=== PATIENT | male | born 1995 | race Two or more races ===

== ENCOUNTER 2020-01-23 17:43 | Outpatient (REF) | payer BC, SELFPAY | END 2020-01-23 17:44 | disposition home or self-care (01) | LOC: HO.LAB 17:43 | PROVIDERS: Visit Provider Internal Medicine | DX: Z20.828 Contact with and (suspected) exposure to other viral communicable diseases (principal) | CPT/HCPCS: C9803; U0003 ==

== ENCOUNTER 2020-02-16 10:57 | Outpatient (REF) | payer BC, SELFPAY | END 2020-02-16 10:58 | disposition home or self-care (01) | LOC: HO.LAB 10:57 | PROVIDERS: Visit Provider Internal Medicine | DX: Z20.828 Contact with and (suspected) exposure to other viral communicable diseases (principal) | CPT/HCPCS: 36415; C9803; U0003 ==

== ENCOUNTER 2020-05-29 19:04 | Emergency (ER) | payer BC, SELFPAY ==
[2020-05-29 19:12] VITALS: BP 136/83; PULSE 90; RESP 18; TEMP 37.1; O2SAT 97; BMI 29.5
--- NOTE | 2020-05-29 19:51 | ED_ITS ---
HPI - Anxiety General Chief Complaint: Anxiety Stated Complaint: anxiety Source: patient Mode of arrival: ambulatory Limitations: no limitations History of Present Illness HPI narrative: 24-year-old male with no significant past medical history presents with approximately 1 month of anxiety. States that he feels overwhelmed by world events, he did break up his girlfriend about a month ago, has had trouble sleeping, trouble eating, and difficulty focusing on tasks. Does not describe any suicidal ideations or homicidal ideations. Denies utilizing drugs or alcohol for coping mechanisms. Is requesting to speak to somebody to help alleviate the stress that he is experiencing. At times he does feel like he has tremors and sweats because of the anxiety. He denies chest pain or pressure, palpitations, shortness of breath, shortness of breath on exertion, abdominal pain, abdominal distention, dysuria, hematuria, fevers, chills, and any other concerning symptoms. MD complaint: anxiety Onset (ago): month(s) (1) Symptoms: extremity numbness/tingling and sense of impending doom Severity: moderate Quality: intermittent Place: home, work, school and outdoors History of similar episodes: Yes (First presentation to the emergency department for anxiety) Provoking factors: emotional stress and work/job stress Relieving factors: nothing Exacerbating factors: thinking about event Associated symptoms: denies other symptoms Related Data Previous Rx's Medication Instructions Recorded hydroxyzine HCl 25 mg PO BID PRN #30 tab 05/29/20 Allergies Allergy/AdvReac Type Severity Reaction Status Date / Time No Known Allergies Allergy Verified 05/29/20 19:12 [No Known Allergies*] pollen Allergy Unknown Nasal Uncoded 05/29/20 19:12 congestion Review of Systems Review of Systems: Constitutional: No Fever, No Chills ENT/Mouth: No Ear Pain, No Nasal Congestion, No sore throat Eyes: No Eye Pain, No Swelling, No Redness Cardiovascular: No Chest Pain, No SOB Respiratory: No Cough, No Sputum, No Dyspnea Gastrointestinal: No Nausea, No Vomiting, No Diarrhea, No Hematochezia, No Melena Genitourinary: No Dysuria, No Urinary Frequency, No Hematuria Musculoskeletal: No Myalgias Skin: No Skin Lesions, No rash Neuro: No Weakness, No Numbness, No Paresthesias, No Dizziness, No Headache Psych: positive Anxiety, positive Depression, no SI/HI Heme/Lymph: No Lymphadenopathy Endocrine: No Polyuria, No Polydipsia Yes all other systems are reviewed and are negative [facility] Past Medical History Attestation statement: The following information was validated with the patient. Source: old records reviewed Medical History No known health problems Social History Social History Advance Directives: No Advance Directives Information Provided: No Physical Exam Vital Signs: Vital Signs: Last Vital Signs Temp 98.8 F 05/29/20 19:12 Pulse 90 05/29/20 19:12 Resp 18 05/29/20 19:12 BP 136/83 05/29/20 19:12 Pulse Ox 97 05/29/20 19:12 Body Mass Index 29.5 Appearance: Alert. Oriented X3. No acute distress. Eyes: Pupils equal, round and reactive to light. ENT: Pharynx normal. Neck: Normal inspection. Neck supple. CVS: Normal heart rate and rhythm. Pulses normal. Respiratory: No respiratory distress. Breath sounds normal. Abdomen: Soft and nontender. Skin: Skin warm and dry. Normal skin color. Normal skin turgor. Extremities: No lower extremity edema. Neuro: No motor deficit. No sensory deficit. Course Course Course Narrative: 24-year-old male with no significant past medical history presents with anxiety and depression. Broke up with his girlfriend about a month ago, states that he is unable to focus times, has difficulty sleeping, is anxious, and feels overwhelmed at times. He does not describe any suicidal ideation, homicidal ideation, does not smoke, participate in illicit drugs or alcohol. He is requesting assistance this time. Will refer to Care team. Care team provided referral to [facility] for counseling center. I will give prescription for Atarax. Patient verbalized understanding of and agrees to plan of care discharge home. MDM - Anxiety Differential Diagnosis Differential diagnosis: Likely acute anxiety Medical Records Attestation: I reviewed the patient's medical records. Discharge Plan Discharge Clinical Impression: Acute anxiety Patient Disposition: Home, Self-Care Instructions: Anxiety (ED) Additional Instructions: You were evaluated for anxiety. Please follow-up with care teams referrals to [facility]. I prescribed Atarax, this medication helps with anxiety. Please follow the directions on this medication. Do not take this medication with Benadryl. Thank you for choosing this emergency department for evaluation. Please follow-up with primary care physician as needed. Return to the emergency department for any new, concerning, or worsening symptoms. Prescriptions: New hydroxyzine HCl 25 mg tablet 25 mg PO BID PRN (Reason: anxiety) Qty: 30 RF: 0 Interventions: ED Discharge Assessment Last Done: 05/29/20 20:35 Discharge Date/Time: 05/29/20 20:37
--- NOTE | 2020-05-29 20:19 | MHC.CARE ---
CARE team consult requested for pt who self presented to ED with complaints of increasing anxiety and depression over the past month in the context of the end of a relationship that pt has found to be difficult for him to process, as the break-up was unanticipated and seemingly without a reason or cause. Pt endorsed experiencing difficulty sleeping, decreased appetite, low energy, loss of interest, and somatic symptoms associated with anxious mood. Pt denied SI/HI/SIB and any history of such. Pt reported that he had submitted his 2 week notice at a recent job then was let go early by his boss, which happened on the same day that his former girlfriend ended their relationship. Pt shared that while he does have friends he doesn't have any that he feels that he's able to talk about his feelings with, and has recently began talking to his mother about what he's been struggling with. This card writer hand explained to pt that having support while working through this situation would be better than allowing for current symptoms for potentionally worsen. Pt was encouraged to utilize natural supports, as they know him best, and to consider working with an individual therapist for additional support. Pt expressed hesitancy, and it was clarified that therapy is voluntary and he can change his mind at any time. Pt reported that the ED provider agreed to provide him with a prescription medication to help with sleep and anxiety (likely hydroxyzine) and is hopeful that will help resolve the problem. This card writer hand shared that the prescription would be for a small amount however if it's helpful could then be managed by his physician. Pt does not currently have a PCP, though used to have one at [facility] ([facility] This card writer hand provided pt with information for [facility] to follow up with and for [facility] where this card writer hand will be faxing a referral for individual therapy to. ED Provider updated re: consult outcomes and plan of care Diagnosis for this visit: Adjustment disorder with mixed anxiety and depression
== END 2020-05-29 20:37 | disposition home or self-care (01) ==
PROVIDERS: Emergency Provider Internal Medicine
DX: F41.9 Anxiety disorder, unspecified (principal); F41.1 Generalized anxiety disorder; F43.0 Acute stress reaction; F43.8 Other reactions to severe stress; Z79.899 Other long term (current) drug therapy
CPT/HCPCS: 99283

== ENCOUNTER 2021-01-13 12:18 | Outpatient (REF) | payer BC, SELFPAY | END 2021-01-13 12:19 | disposition home or self-care (01) | LOC: HO.LAB 12:18 | PROVIDERS: Visit Provider Internal Medicine | DX: Z20.822 Contact with and (suspected) exposure to COVID-19 (principal) | CPT/HCPCS: C9803; U0003; U0005 ==

== ENCOUNTER 2021-07-02 10:10 | Emergency (ER) | payer OTHER, SELFPAY ==
[2021-07-02 10:59] VITALS: BP 132/109; PULSE 75; RESP 18; TEMP 36.8; O2SAT 97; BMI 31.1
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
== END 2021-07-02 11:55 | disposition home or self-care (01) ==
PROVIDERS: Emergency Provider Emergency Medicine Emergency Medical Services
DX: T25.422A Corrosion of unspecified degree of left foot, initial encounter (principal); T31.0 Burns involving less than 10% of body surface; X12.XXXA Contact with other hot fluids, initial encounter; Y93.9 Activity, unspecified; Y92.9 Unspecified place or not applicable; Y99.9 Unspecified external cause status; Z79.899 Other long term (current) drug therapy
CPT/HCPCS: 16000; 99282

== ENCOUNTER 2022-12-18 22:29 | Emergency (ER) | payer OTHER, SELFPAY ==
--- NOTE | ~2022-12-18 | XR_ITS ---
EXAMINATION: XR FOOT, LEFT CLINICAL INFORMATION: Possible injury COMPARISON: None available. TECHNIQUE: AP, lateral, and oblique views of the left foot. FINDINGS: No acute visible fracture or dislocation. Joint spaces and alignment are maintained. Soft tissues are unremarkable. XR/XR foot LT 2V IMPRESSION: No acute visible fracture or dislocation.
[2022-12-18 22:39] VITALS: BP 129/91; PULSE 73; RESP 20; TEMP 36.5; O2SAT 99; BMI 32.3
--- NOTE | 2022-12-19 01:19 | ED.GENADULT ---
HPI - General Adult General Chief complaint: Extremity Injury, Lower Stated complaint: left foot inj Time Seen by Provider: 12/19/22 01:07 Source: patient Mode of arrival: ambulatory Limitations: no limitations History of Present Illness HPI narrative: 27-year-old male presents to ED for left foot pain. Patient states he was playing softball running and felt pain in in his left foot near the lateral side. Patient denies falling to the ground or hearing crack. patient denies any ankle pain or any other complaints. Patient denies any other complaints. Patient denies any other trauma. Related Data Previous Rx's Medication Instructions Recorded hydroxyzine HCl 25 mg tablet 25 mg PO BID PRN anxiety #30 tabs 05/29/20 naproxen 500 mg tablet 500 mg PO BID PRN pain 7 days #28 12/19/22 tabs Allergies Allergy/AdvReac Type Severity Reaction Status Date / Time No Known Allergies Allergy Verified 07/02/21 11:01 [No Known Allergies*] pollen Allergy Unknown Nasal Uncoded 05/29/20 19:12 congestion Review of Systems Review of Systems: left foot pain Yes all other systems are reviewed and are negative [facility] Past Medical History Medical History No known health problems Social History Social History Advance Directives: No Advance Directives Information Provided: Yes Physical Exam ED Vital Signs: Vital Signs - 24 hr 12/18/22 22:39 12/19/22 01:53 Temperature 97.7 F Pulse Rate 73 67 Respiratory Rate 20 18 Blood Pressure 129/91 H Pulse Oximetry 99 98 Oxygen Delivery Method Room Air Room Air BMI result Body Mass Index 32.3 Const General: cooperative, healthy appearing, comfortable, no acute distress, well developed, alert, awake and Physically active Orientation/consciousness: oriented to person, oriented to place, oriented to time and patient oriented x3 HENMT Head: Yes normal to inspection, Yes No palpable skull fracture present, Yes normocephalic and Yes atraumatic Eyes General: appearance normal, both eyes and all related structures Neck Neck: Yes normal visual inspection, Yes full ROM, Yes no lymphadenopathy, Yes no meningeal signs, Yes trachea midline, Yes supple, No anterior neck swelling and No tender Chest Chest palpation & inspection: normal inspection of the chest and normal palpation of entire chest wall Resp Effort & Inspection: normal respiratory effort and able to speak in complete sentences Auscultation: clear to auscultation bilaterally Cardio Jugular venous distension: no JVD Heart sounds: S1 normal heart sound present and S2 normal heart sound present GI Inspection: Yes normal to inspection and No abdominal wall ecchymosis Palpation (GI): Soft to palpation, not firm, nontender and no guarding General: No CVA tenderness and Yes no CVA tenderness Back/Spine/Pelvis Back: no CVA tenderness, No CVA tenderness and No back tenderness Skin General skin exam: no rashes or lesions noted and elasticity normal Neuro General: oriented to person, oriented to place, oriented to time, patient oriented x3, gait normal, tone normal, moves all extremities, Normal light touch and pain sensation, no meningeal signs, no focal motor deficits, CN's II-XI intact bilaterally and normal sensation to monofilament Extrem General: Yes normal to inspection, Yes full ROM and Yes capillary refill normal Ankle/foot/toe images: 1. Tenderness on palpation. Negative for crepitus, ecchymosis, erythema, foul odor, pus discharge, or deformity. Motor/neuro/vascular exam intact Psych Appearance: grossly normal, well kempt and not disheveled Medications Administered Discontinued Medications Generic Name Dose Route Start Last Admin Trade Name Keeganq PRN Reason Stop Dose Admin Ibuprofen 800 mg 12/19/22 01:16 12/19/22 01:49 Ibuprofen 800 Mg Tablet PO 12/19/22 01:17 800 mg ONCE ONE Administration Medical Decision Making Medical Decision Making MDM Narrative: 27-year-old male presents to ED for left foot pain caused by draining full while running playing softball. Patient denies hearing any cracking or popping sound. Patient denies any blunt trauma. Patient states no other physical complaints. X-rays normal. History physical exam does not indicate compartment syndrome, DVT, cellulitis, arterial occlusion, or fracture. Patient is safe for discharge Differential Diagnosis Differential Diagnoses: The differential diagnosis associated with the presentation includes (Fracture, dislocation, DVT, cellulitis, compartment syndrome) Admission/Observation Consideration of admission/observation: Escalation of care including admission/observation considered Independent Interpretation I performed an independent interpretation of an: Plain X-Ray Radiology Impression Discussion of test interpretation with radiology: I have reviewed the radiologist's reading. External Record Review External record reviewed: Other (Prior visits) Prescription Management I considered prescription management with: Pain Medication Discharge Plan Discharge Clinical Impression: Foot sprain Patient Disposition: Home, Self-Care Instructions: How to Use an Elastic Bandage (ED), Foot Sprain (ED), Ice Pack Application (ED) Additional Instructions: Return to the ED immediately any swelling, bluish black discoloration, fever, chills, worsening pain, stiffness, pus discharge, foul odor, calf pain, chest pain, shortness of breath, or any other concerning symptoms. Please follow-up with PCP. Prescriptions: New naproxen 500 mg tablet 500 mg PO BID PRN (Reason: pain) 7 Days Qty: 28 0RF No Action hydroxyzine HCl 25 mg tablet 25 mg PO BID PRN (Reason: anxiety) Qty: 30 0RF Stand Alone Forms: Work/School Release Interventions: ED Discharge Assessment Last Done: 12/19/22 01:55 Discharge Date/Time: 12/19/22 01:56 Print Language: Belarusian
[2022-12-19] MEDS: Ibuprofen 800 MG TABLET PO (01:49)
[2022-12-19 01:53] VITALS: PULSE 67; RESP 18; O2SAT 98
--- NOTE | 2022-12-19 01:54 | PC.NURSE ---
this rn placed anrgis wrap on pt left foot, pt tolerated procedure well.
== END 2022-12-19 01:56 | disposition home or self-care (01) ==
PROVIDERS: Emergency Provider Internal Medicine
DX: S93.602A Unspecified sprain of left foot, initial encounter (principal); X50.9XXA Other and unspecified overexertion or strenuous movements or postures, initial encounter; Y93.64 Activity, baseball; Y92.320 Baseball field as the place of occurrence of the external cause; Y99.9 Unspecified external cause status
CPT/HCPCS: 73620; 99283; 99284

== ENCOUNTER 2024-06-24 15:19 | Emergency (ER) | payer OTHER, SELFPAY ==
--- NOTE | ~2024-06-24 | XR_ITS ---
EXAMINATION: XR SHOULDER, RIGHT CLINICAL INFORMATION: pain x 1 month COMPARISON: None available. TECHNIQUE: AP external rotation, Grashey, scapular Y, and axillary views of the right shoulder. FINDINGS: Normal bone mineralization. No fracture, dislocation, or suspicious bone lesion. Normal alignment. The glenohumeral joint is normal. The AC joint is normal. There is a type II acromion. No undersurface spurring. The subacromial space is preserved. Remainder of the soft tissue and bony structures appear normal. XR/XR shoulder RT min 2V IMPRESSION: Normal right shoulder. Electronically signed by: Yves Alejandre MD 06/24/2024 04:08 PM EDT
[2024-06-24 15:49] VITALS: BP 133/86; PULSE 84; RESP 18; TEMP 37.1; O2SAT 99; BMI 33.5
--- NOTE | 2024-06-24 15:49 | ED.GENADULT ---
HPI - General Adult General Chief complaint: Extremity Injury, Lower Stated complaint: Left shoulder pain Time Seen by Provider: 06/24/24 16:27 Source: patient, RN notes reviewed and old records reviewed Mode of arrival: ambulatory Limitations: no limitations History of Present Illness ED Provider: Amelia HPI narrative: Patient is a 28-year-old male presenting with complaint of colicky right shoulder pain for the past month. Denies current pain. Denies paresthesias. Denies known injury/trauma. Has been lifting weights at the gym. Worse with movement. MD complaint: right shoulder pain Onset (ago): month(s) Related Data Previous Rx's ?Medication ?Instructions ?Recorded hydroxyzine HCl 25 mg tablet 25 mg PO BID PRN anxiety #30 tabs 05/29/20 naproxen 500 mg tablet 500 mg PO BID PRN pain 7 days #28 12/19/22 tabs cyclobenzaprine 10 mg tablet 10 mg PO TID PRN muscle spasm #10 06/24/24 tabs prednisone 20 mg tablet 40 mg (2 x 20 mg) PO DAILY #10 tabs 06/24/24 Allergies Allergy/AdvReac Type Severity Reaction Status Date / Time No Known Allergies Allergy Verified 06/24/24 15:50 [No Known Allergies*] pollen Allergy Unknown Nasal Uncoded 05/29/20 19:12 congestion Review of Systems Review of Systems: As per HPI Yes all other systems are reviewed and are negative Constitutional: Constitutional: Reports as per HPI [facility] Past Medical History Medical History No known health problems Social History Social History Advance Directives: No Advance Directives Information Provided: No Physical Exam ED Vital Signs: Vital Signs - 24 hr 06/24/24 15:49 Temperature 98.7 F Pulse Rate 84 Respiratory Rate 18 Blood Pressure 133/86 Pulse Oximetry 99 Oxygen Delivery Method Room Air BMI result Body Mass Index 33.5 Vital signs have been reviewed and appear to be correct. Blood pressure normal. Heart rate normal. Respiratory rate normal. Temperature normal. Oxygen saturation normal. Const General: cooperative, healthy appearing and no acute distress Orientation/consciousness: oriented to person, oriented to place, oriented to time and patient oriented x3 Limitations: no limitations HENMT Head: Yes normocephalic and Yes atraumatic Ears: external ears normal General nose exam: Normal external nose present Face and sinus: Yes face symmetric Mouth: oropharynx normal and moist mucous membranes Throat: Yes uvula midline Eyes Pupils: Equal, round and reactive pupils present Neck Neck: Yes normal visual inspection and Yes supple Resp Effort & Inspection: normal respiratory effort and able to speak in complete sentences Auscultation: clear to auscultation bilaterally Cardio Rate: regular rate Rhythm: regular rhythm Heart sounds: S1 normal heart sound present and S2 normal heart sound present GI Palpation (GI): Soft to palpation and nontender Auscultation: normoactive bowel sounds General: Yes no CVA tenderness Back/Spine/Pelvis Back: no CVA tenderness Skin General skin exam: elasticity normal and turgor normal Neuro General: oriented to person, oriented to place, oriented to time, patient oriented x3, moves all extremities, no focal motor deficits and CN's II-XI intact bilaterally Cranial nerves: Yes Equal, round and reactive pupils present Cognition (Neuro): normal cognition Extrem General: Yes full ROM, Yes no pedal edema and Yes no calf tenderness Right upper extremity: shoulder/upper arm Details: normal to inspection, tenderness Location: of the A-C joint, axillary nerve sensory function normal and normal ROM (increased pain with ROM); no swelling and no deformity and Extremity exam: right hand Details: normal capillary refill, vascular exam Details: radial pulse present and normal ROM of fingers Psych Mental Status: mental status grossly normal Affect: normal affect Thought process: Normal thought process present Course Course Course Narrative: This is a rapid medical exam performed by Matthew Cisneros NP: Additional HPI, ROS, PE not included below will be deferred to primary provider. Patient is a 28-year-old male presenting with complaint of colicky right shoulder pain for the past month. Denies current pain. Denies paresthesias. Denies known injury/trauma. Plan: xray Medical Decision Making Medical Decision Making MDM Narrative: Patient is a 28-year-old male presenting with complaint of colicky right shoulder pain for the past month. On exam patient is awake, A+Ox3, VS WNL, afebrile, normal neurological exam without focal deficits, physical exam findings as above. Given reported symptoms and physical exam findings, initial differential includes but is not limited to right shoulder strain, sprain, rotator cuff injury. Unlikely fracture. X-ray notable for no fracture. My interpretation is in agreement with the radiologist's interpretation. Results discussed with patient and all questions answered. Will refer to orthopedics for further evaluation and management. Discussed with patient that he may require physical therapy to improve his symptoms. Will send prescriptions for prednisone and Flexeril to see if this improves his symptoms, advised Tylenol and ibuprofen. Return precautions discussed. Patient verbalized understanding of and agreement with plan. Differential Diagnosis Differential Diagnoses: The differential diagnosis associated with the presentation includes As per [facility] Admission/Observation Consideration of admission/observation: Escalation of care including admission/observation considered Patient would have been admitted to the hospital had their work up had any findings where hospital admission was appropriate and their clinical presentation warranted hospital admission. Independent Interpretation I performed an independent interpretation of an: Plain X-Ray Interpretation: No acute fracture right shoulder Radiology Impression Discussion of test interpretation with radiology: I have reviewed the radiologist's reading. Radiologist Impression: CLINICAL INFORMATION: pain x 1 month COMPARISON: None available. TECHNIQUE: AP external rotation, Grashey, scapular Y, and axillary views of the right shoulder. FINDINGS: Normal bone mineralization. No fracture, dislocation, or suspicious bone lesion. Normal alignment. The glenohumeral joint is normal. The AC joint is normal. There is a type II acromion. No undersurface spurring. The subacromial space is preserved. Remainder of the soft tissue and bony structures appear normal. XR/XR shoulder RT min 2V IMPRESSION: Normal right shoulder. External Record Review External record reviewed: Inpatient record, Office record and Outpatient record Prescription Management I considered prescription management with: Other Discharge Plan Discharge Clinical Impression: Right shoulder strain Patient Disposition: Home, Self-Care Instructions: Muscle Strain (DC), Rotator Cuff Injury (ED) Additional Instructions: You have been evaluated in the emergency department today for shoulder pain. Your x-ray was normal but you will likely need an MRI. We are referring you to orthopedics for further evaluation and management of your symptoms. Call their office to schedule an appointment. You are being prescribed a short course of prednisone which is a steroid to decrease inflammation. You are also being prescribed cyclobenzaprine which is a muscle relaxer. Do not take this medication with alcohol as it can cause excessive drowsiness. We recommend you take 600mg ibuprofen every 6 hours or 650mg Tylenol every 6 hours as needed for pain. If needed you can alternate these medications as they take 1 medication every 3 hours. For instance at noon take ibuprofen, then at 3:00 p.m. take Tylenol, then at 6:00 p.m. take ibuprofen. Please schedule an appointment for follow-up with your primary care provider this week. Return to the emergency department if you experience worsening pain, numbness, tingling, change of color in your arm, or any other concerning symptoms. Prescriptions: New prednisone 20 mg tablet 40 mg PO DAILY Qty: 10 0RF cyclobenzaprine 10 mg tablet 10 mg PO TID PRN (Reason: muscle spasm) Qty: 10 0RF No Action hydroxyzine HCl 25 mg tablet 25 mg PO BID PRN (Reason: anxiety) Qty: 30 0RF naproxen 500 mg tablet 500 mg PO BID PRN (Reason: pain) 7 Days Qty: 28 0RF Referrals: [facility] [place] [Provider Group] - 1 week Print Language: Belarusian
[2024-06-24 17:50] VITALS: BP 133/86; PULSE 84; RESP 18; TEMP 37.1; O2SAT 99
== END 2024-06-24 17:52 | disposition home or self-care (01) ==
PROVIDERS: Emergency Provider Emergency Medicine
DX: S46.911A Strain of unspecified muscle, fascia and tendon at shoulder and upper arm level, right arm, initial encounter (principal); X50.0XXA Overexertion from strenuous movement or load, initial encounter; M25.511 Pain in right shoulder; Y93.B3 Activity, free weights; Y92.39 Other specified sports and athletic area as the place of occurrence of the external cause; Y99.9 Unspecified external cause status
CPT/HCPCS: 73030; 99282; 99283

== ENCOUNTER → 2024-06-24 15:53 | Outpatient (BNV) | payer OTHER, SELFPAY | PROVIDERS: Emergency Provider Emergency Medicine; Visit Provider Radiology Diagnostic Radiology | DX: M25.511 Pain in right shoulder (principal) | CPT/HCPCS: 73030 ==

== ENCOUNTER 2024-07-10 16:27 | Emergency (ER) | payer OTHER, SELFPAY ==
[2024-07-10 16:59] VITALS: BP 139/86; PULSE 76; RESP 16; TEMP 36.5; O2SAT 96; BMI 33.3
--- NOTE | 2024-07-10 16:59 | ED.UPPEXIN ---
HPI - Extremity Injury (Upper) General Chief Complaint: Extremity Injury, Upper Stated Complaint: R shoulder pain Time Seen by Provider: 07/10/24 17:29 Source: patient Mode of arrival: ambulatory Limitations: no limitations History of Present Illness ED Provider: Arnaud Becerra PA-C HPI narrative: 28-year-old male without significant medical history presents to the emergency department due to right shoulder pain x1 month. Was seen recently in the ED (06/24) for the same symptoms Xray revealed no fracture or dislocation. Has followed up with ortho and has an MRI scheduled for August. Presents today due to the ongoing pain and wants to be evaluated. States he was prescribed cyclobenzaprine without effect, is taking ibuprofen for pain without effect. Denies any radiculopathy, recent/additional trauma, or falls. MD complaint: injury to: right Onset (ago): month(s) (1 ) Other injuries: none Handedness: right Severity: moderate Relieving factors: none Exacerbating factors: movement of extremity Associated symptoms: denies other symptoms Related Data Previous Rx's ?Medication ?Instructions ?Recorded hydroxyzine HCl 25 mg tablet 25 mg PO BID PRN anxiety #30 tabs 05/29/20 naproxen 500 mg tablet 500 mg PO BID PRN pain 7 days #28 12/19/22 tabs cyclobenzaprine 10 mg tablet 10 mg PO TID PRN muscle spasm #10 06/24/24 tabs prednisone 20 mg tablet 40 mg (2 x 20 mg) PO DAILY #10 tabs 06/24/24 acetaminophen 500 mg tablet 500 mg PO Q6H PRN pain #60 tabs 07/10/24 (Tylenol Extra Strength) lidocaine 5 % topical patch 1 patch topical DAILY #30 ea 07/10/24 naproxen 500 mg tablet,delayed 500 mg PO BID #60 tabs 07/10/24 release (EC-Naproxen) Allergies Allergy/AdvReac Type Severity Reaction Status Date / Time No Known Allergies Allergy Verified 07/10/24 17:02 [No Known Allergies*] pollen Allergy Unknown Nasal Uncoded 07/10/24 17:02 congestion Review of Systems Review of Systems: CONST: Negative for fever, body aches and chills. HENT: Negative for neck pain/stiffness, headache, congestion, sore throat, swelling. EYES: Negative for discharge/pain or vision changes. RESP: Negative for cough/hemoptysis and shortness of breath. CV: Negative chest pain, difficulty breathing, palpitations. ABD: Negative pain, nausea, vomiting. : Negative increase frequency, dysuria, blood in urine or stool. MUSC: Negative for muscle aches, edema. POS right anterior shoulder pain SKIN: Negative rash, lesions/sores. NEURO: Negative headache, dizziness, weakness. Yes all other systems are reviewed and are negative PMFSH Past Medical History Attestation statement: The following information was validated with the patient. Source: old records reviewed Medical History No known health problems Social History Social History Advance Directives: No Advance Directives Information Provided: No Physical Exam Vital Signs: Vital Signs: Last Vital Signs Temp 97.7 F 07/10/24 17:59 Pulse 76 07/10/24 17:59 Resp 16 07/10/24 17:59 BP 139/86 07/10/24 17:59 Pulse Ox 96 07/10/24 17:59 O2 Del Method Room Air 07/10/24 17:59 BMI result Body Mass Index 33.3 GENERAL APPEARANCE: ?AxOx4, generally well-appearing no acute distress. NECK: ?Supple without lymphadenopathy.? No stiffness or restricted ROM. HEART:? Normal rate and regular rhythm, normal S1/S1, no m/r/g LUNGS:? CTAB, moving air well. No crackles or wheezes are heard. EXTREMITIES: ?Without cyanosis, clubbing or edema. POS lift off test, empty can test. TTP over anterior aspect of R shoulder NEUROLOGICAL: ?Grossly nonfocal. Alert and oriented, moving all 4 extremities. Observed to ambulate with normal gait. Skin: ?Warm and dry without any rash. Course Course Course Narrative: This is an RME: Additional HPI, ROS, PE not included below will be deferred to primary provider. RME assessment and note performed by: Mariam Lares PA-C 28-year-old male without significant medical history presents to the emergency department due to right shoulder pain x1 month. Was seen recently in the ED (06/24) for the same symptoms. Has followed up with ortho and has an MRI scheduled for [facility]. Presents today due to the ongoing pain and wants to be evaluated. States he was prescribed cyclobenzaprine without effect, is taking ibuprofen for pain without effect. PE: Medical Decision Making Medical Decision Making [facility] Narrative: 28-year-old male without significant medical history presents to the emergency department due to right shoulder pain x1 month. Was seen recently in the ED (06/24) for the same symptoms Xray revealed no fracture or dislocation. Has followed up with ortho and has an MRI scheduled for August. Vital signs stable, no acute distress, nontoxic appearing. On physical exam no ecchymosis, edema in, erythema of the right shoulder. Pain with shoulder flexion, lift-off test positive, empty can test positive. These positive tests indicate there is pathology with the rotator cuff. Patient just had x-ray 06/24 with no fracture or dislocation. No trauma/fall since imaging. Pain has stayed consistent since imaging. No concern for fracture. No radicular symptoms, no concern for nerve impingement. Radial pulses intact. At this time suspect rotator cuff pathology such as rotator cuff tendinitis, rotator cuff tear. patient has only been taking Tylenol 1 time a day educated patient on taking naproxen twice a day and using Tylenol for breakthrough pain , icing the area, pendulum exercises, and applying lidocaine patches to manage pain until he is able to follow up with ortho in August. Differential Diagnosis rotator cuff tendonitis Rotator cuff tear Labral tear Adhesive capsulitis Biceps tendinitis Admission/Observation Consideration of admission/observation: Escalation of care including admission/observation considered External Record Review External record reviewed: Inpatient record and Outpatient record Discharge Plan Discharge Clinical Impression: Right shoulder strain Qualifiers: Encounter type: initial encounter Qualified Code(s): S46.911A - Strain of unspecified muscle, fascia and tendon at shoulder and upper arm level, right arm, initial encounter Patient Disposition: Home, Self-Care Instructions: Muscle Strain (ED), Cold Compress or Soak (ED) Additional Instructions: You were evaluated in the emergency department today due to right shoulder pain. Your physical exam was reassuring. You had recent x-ray of the shoulder on 06/24/2024 which did not reveal any fracture or dislocation. You denied any recent injury/trauma to the shoulder since your last x-ray. You have an MRI coming up in August with the orthopedic team. You will be prescribed 5% lidocaine patches, 500 mg Tylenol, 500 mg naproxen. Please only take the Tylenol and naproxen that are prescribed to you do not take ibuprofen while taking naproxen. You should ice the area by wrapping ice and a towel and placing on the affected area for 15 minute increments. It would be beneficial for you to look of pendulum exercises for gentle stretching and movement of the shoulder. You should refrain from lifting heavy weights for now. Please return to the emergency department if you experience increased pain, numbness or tingling of the extremity, tightness of the limb, discoloration of the limb, fevers over 100.4?, or any new/worsening/concerning symptoms. Prescriptions: New lidocaine 5 % adhesive patch,medicated 1 patch topical DAILY Qty: 30 0RF Rx Instructions: leave on most painful area for up to 12 hrs naproxen [EC-Naproxen] 500 mg tablet,delayed release (DR/EC) 500 mg PO BID Qty: 60 0RF acetaminophen [Tylenol Extra Strength] 500 mg tablet 500 mg PO Q6H PRN (Reason: pain) Qty: 60 0RF No Action hydroxyzine HCl 25 mg tablet 25 mg PO BID PRN (Reason: anxiety) Qty: 30 0RF naproxen 500 mg tablet 500 mg PO BID PRN (Reason: pain) 7 Days Qty: 28 0RF prednisone 20 mg tablet 40 mg PO DAILY Qty: 10 0RF cyclobenzaprine 10 mg tablet 10 mg PO TID PRN (Reason: muscle spasm) Qty: 10 0RF Stand Alone Forms: Work/School Release Interventions: ED Discharge Assessment Last Done: 07/10/24 17:59 Discharge Date/Time: 07/10/24 18:00 Print Language: Grenadian
[2024-07-10 17:59] VITALS: BP 139/86; PULSE 76; RESP 16; TEMP 36.5; O2SAT 96
== END 2024-07-10 18:00 | disposition home or self-care (01) ==
PROVIDERS: Emergency Provider Internal Medicine
DX: S46.911A Strain of unspecified muscle, fascia and tendon at shoulder and upper arm level, right arm, initial encounter (principal); M25.511 Pain in right shoulder; X58.XXXA Exposure to other specified factors, initial encounter; Y93.9 Activity, unspecified; Y92.9 Unspecified place or not applicable; Y99.8 Other external cause status
CPT/HCPCS: 99282; 99283

== ENCOUNTER 2024-08-21 09:42 | Outpatient (AMB) | payer OTHER, SELFPAY ==
--- NOTE | 2024-08-21 09:49 | MHC.OFFVIS ---
Intake Visit Reasons: ER-F/U Right shoulder strain Intake Note: Elías is a 28 year old right hand dominant male who presents today for a New Patient/ER Follow up visit for evaluation of Right Shoulder. Patient reports that he has had pain and clicking in the right shoulder ongoing for about 2 months now. At today's visit he reports that the pain started to flair up 05/29/24, no injury. He states no physical therapy or injections, mild relief with the naproxen that was given by the ER. Patient added that about a month ago the pain was not as intense, only with certain movements. Allergies No Known Allergies (No Known Allergies*) Allergy (Verified 08/21/24 09:53) pollen Allergy (Unknown, Uncoded 07/10/24 17:02) Nasal congestion HPI HPI ER-F/U Right shoulder strain: Details: 29 yo male presents to the office today for right shoulder pain since may. He denies inury. C/o pain with reaching, pushing off a chair or lifting. He was seen in the ED, given naproxen with mild relief. No previous surgery , PT or injection. He works at [employer] at a [employer] and has some pain with lifting. [facility] Medical History No known health problems Review of Systems Const All systems reviewed & are unremarkable except as noted in HPI and below Physical Exam Const General: cooperative and no acute distress Orientation/consciousness: patient oriented x3 Resp Effort & Inspection: normal respiratory effort and able to speak in complete sentences Cardio Peripheral pulses: Peripheral pulses 2+ throughout Neuro General: patient oriented x3 Extrem Other: Right shoulder normal to inspection, Mild TTP proximal biceps tendon with a negative Castle's . Discomfort and Crepitus with valiente, 5/5 RTC strength, NVI. Results Reviewed Results Reviewed: XR shoulder RT min 2V IMPRESSION: Normal right shoulder. Assessment & Plan Assessment & Plan (1) Subacromial bursitis of right shoulder joint: Code(s): M75.51 - Bursitis of right shoulder Category: Medical Plan: We discussed options today which include physical therapy and anti-inflammatory use. He does have a prescription for naproxen I encouraged him to take this 500 mg twice a day for 2 weeks to help with the acute flare-ups. I did place an order for physical therapy and gave him the information to contact our office. If symptoms persist or worsen over the next 8 weeks he can contact our office to discuss further imaging studies otherwise she will follow up as needed. Orders: Orders PT Evaluation and Treatment Today M75.51 - Bursitis of right shoulder Coding Level of Care Code New Pt Level 3 (81138) Complex EM visit Add On G2211 Diagnoses Subacromial bursitis of right shoulder joint M75.51
== END 2024-08-21 10:17 | disposition home or self-care (01) ==
LOC: HO.HOS 09:43
PROVIDERS: Visit Provider Physician Assistant
DX: M75.51 Bursitis of right shoulder (principal)
CPT/HCPCS: 99203; G2211

== ENCOUNTER → 2024-08-21 09:42 | Outpatient (BNVA) | payer OTHER, SELFPAY | PROVIDERS: Visit Provider Physician Assistant | DX: M75.41 Impingement syndrome of right shoulder (principal) | CPT/HCPCS: 99202 ==